=== PATIENT | male | born 1985 | race Caucasian/White ===

== ENCOUNTER 2016-10-05 20:04 | Emergency (ER) | payer OTHER ==
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
[2016-10-05] MEDS ORDERED: OXYCODONE/APAP 5/325MG PREPACK#4 BTL TAKEHOME ONE (20:21)
[2016-10-05] MEDS ORDERED: OXYCODONE/APAP 5/325 TAB PO ONE (20:21)
[2016-10-05] MEDS ORDERED: HYDROCODONE/APAP 5/325 TAB ONE (20:21)
[2016-10-05] MEDS ORDERED: ONDANSETRON DISINTEGRATING 4 MG TAB ONE (20:21)
[2016-10-05] MEDS ORDERED: ONDANSETRON DISINTEGRATING 4 MG TAB PO ONE (20:21)
[2016-10-05 21:17] VITALS: BP 132/90; PULSE 80; RESP 20; TEMP 98.1; O2SAT 95
== END 2016-10-05 21:19 | disposition home or self-care (01) ==
DX: S43.102A Unspecified dislocation of left acromioclavicular joint, initial encounter (principal); F17.200 Nicotine dependence, unspecified, uncomplicated; J45.909 Unspecified asthma, uncomplicated; V00.131A Fall from skateboard, initial encounter; Y99.8 Other external cause status; Y93.89 Activity, other specified
CPT/HCPCS: A4565